=== PATIENT | male | born 1985 ===

== ENCOUNTER 2017-07-20 10:39 | Emergency (ER) | payer MEDICAID ==
[2017-07-20 10:46] VITALS: BMI 28.1
[2017-07-20 11:16] LABS: URINE BILIRUBIN NEGATIVE (NEGATIVE); URINE BLOOD NEGATIVE (NEGATIVE); URINE CLARITY Clear (Clear); URINE COLOR Yellow (YELLOW); URINE GLUCOSE (UA) NORMAL (Normal); URINE LEUKOCYTE ESTERASE NEG Leu/uL (Negative); URINE NITRATE NEGATIVE (NEGATIVE); URINE PROTEIN NEGATIVE (NEGATIVE); URINE UROBILINOGEN NORMAL mg/dL (0.2-1.0)
--- NOTE | 2017-07-20 11:40 | C.PDOC ---
History Of Present Illness 31 y/o male presents to ED for evaluation of dark red urine noticed prior to arrival. Patient states after having rough sexual intercourse with partner, he noticed dark red urine associated with burning sensation. At ED patient is asymptomatic but came for evaluation and denies nausea, vomiting or any other complaints at this time. Time Seen by Provider: 07/20/17 10:52 Chief Complaint (Nursing): Male Genitourinary History Per: Patient History/Exam Limitations: no limitations Onset/Duration Of Symptoms: Hrs Current Symptoms Are (Timing): Still Present Associated Symptoms: Urinary Symptoms Past Medical History Reviewed: Historical Data, Nursing Documentation, Vital Signs Vital Signs: Last Vital Signs Temp 98.5 F 07/20/17 11:47 Pulse 77 07/20/17 11:47 Resp 18 07/20/17 11:47 BP 138/82 07/20/17 11:47 Pulse Ox 98 07/20/17 13:00 - Medical History PMH: No Chronic Diseases Surgical History: No Surg Hx Family History: States: No Known Family Hx - Social History Hx Alcohol Use: Yes Hx Substance Use: No - Immunization History Hx Tetanus Toxoid Vaccination: No Hx Influenza Vaccination: No Hx Pneumococcal Vaccination: No Review Of Systems Constitutional: Negative for: Fever, Chills Cardiovascular: Negative for: Chest Pain Gastrointestinal: Negative for: Nausea, Vomiting Genitourinary: Positive for: Dysuria, Other (Dark red urine). Negative for: Penile Discharge Skin: Negative for: Rash Physical Exam - Physical Exam Appears: Non-toxic, No Acute Distress Skin: Warm, Dry, No Rash Head: Atraumatic, Normacephalic Eye(s): bilateral: Normal Inspection Oral Mucosa: Moist Neck: Normal ROM, Supple Cardiovascular: Rhythm Regular Respiratory: Normal Breath Sounds, No Rales, No Rhonchi, No Wheezing Gastrointestinal/Abdominal: Soft, No Tenderness, No Guarding, No Rebound Back: No CVA Tenderness Extremity: Normal ROM, Capillary Refill (<2 seconds) Neurological/Psych: Oriented x3 ED Course And Treatment O2 Sat by Pulse Oximetry: 98 (RA) Pulse Ox Interpretation: Normal Progress Note: UA was negative. No dysuria, no discharge or pelvic pain. Patient given Urology number for follow up Disposition - Disposition Referrals: Sudhir Amaral MD [Staff Provider] - Disposition: HOME/ ROUTINE Disposition Time: 11:37 Condition: STABLE Additional Instructions: Follow up with PMD and Urologist within 1-2 days. Return to ED if feel worse. 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 - Scribe Statement The provider has reviewed the documentation as recorded by the Alexyibalysha Mathew All medical record entries made by the [place] were at my direction and personally dictated by me. I have reviewed the chart and agree that the record accurately reflects my personal performance of the history, physical exam, medical decision making, and the department course for this patient. I have also personally directed, reviewed, and agree with the discharge instructions and disposition.
[2017-07-20 11:48] VITALS: BP 138/82; PULSE 77; RESP 18; TEMP 98.5
[2017-07-20 12:58] VITALS: O2SAT 98
== END 2017-07-20 11:48 | disposition home or self-care (01) ==
LOC: C.ER 10:39
DX: R31.9 Hematuria, unspecified (principal)